=== PATIENT | male | born 1970 | race Caucasian/White ===

== ENCOUNTER 2017-04-29 17:36 | Emergency (ER) | payer BC ==
[~2017-04-29 17:36] MED LIST: ALPRAZOLAM; AMPICILLIN PO; BENADRYL25 MG PO; DOXYCYCLINE HY100 M1 PO; KEFLEX500 MG PO; LORTAB 10-5001 EACH; LORTAB 10/500 T1 TAB PO; NO MEDICATIONS; PREDNISONE PO; VISTARIL50 MG PO
[2017-04-29] MEDS ORDERED: ZOCOR (17:40)
[2017-04-29] MEDS ORDERED: LOPRESSOR PO (17:40)
== END 2017-04-29 18:33 | disposition home or self-care (01) ==
LOC: SED 17:36
DX: T15.01XA Foreign body in cornea, right eye, initial encounter (principal); I10 Essential (primary) hypertension; Z79.899 Other long term (current) drug therapy; X58.XXXA Exposure to other specified factors, initial encounter; Y92.69 Other specified industrial and construction area as the place of occurrence of the external cause
CPT/HCPCS: 99283